=== PATIENT | male | born 1965 ===

== ENCOUNTER 2018-04-18 07:27 | Emergency (ER) | payer OTHER ==
[~2018-04-18] VITALS: Ht 167.6 cm; Wt 59.9 kg
[2018-04-18] MEDS ORDERED: SINGULAIR10 MG PO (07:38)
[2018-04-18] MEDS ORDERED: ATROVENT HFA12.9 GM IH (07:38)
[2018-04-18] MEDS ORDERED: SYMBICORT 16010.2 GM IH (07:39)
[2018-04-18] MEDS ORDERED: TUSSI PRES-B L120 M1 PO (12:24)
[2018-04-18] MEDS ORDERED: MEDROLPACK PO (12:24)
== END 2018-04-18 13:28 | disposition home or self-care (01) ==
LOC: ER 07:27
DX: J44.9 Chronic obstructive pulmonary disease, unspecified (principal)

== ENCOUNTER 2018-08-17 13:05 | Emergency (ER) | payer OTHER ==
[~2018-08-17] VITALS: Ht 157.5 cm; Wt 59.9 kg
[~2018-08-17 13:05] MED LIST: ATROVENT HFA12.9 GM IH; MEDROLPACK PO; SINGULAIR10 MG PO; SYMBICORT 16010.2 GM IH; TUSSI PRES-B L120 M1 PO
[2018-08-17] MEDS ORDERED: PROAIR HFA8.5 GM (13:21)
[2018-08-17] MEDS ORDERED: PROTONIX40 MG (13:21)
== END 2018-08-17 22:00 | disposition home or self-care (01) ==
LOC: ER 13:05
DX: K52.9 Noninfective gastroenteritis and colitis, unspecified (principal); E86.0 Dehydration